=== PATIENT | female | born 1960 | race Caucasian/White ===

== ENCOUNTER → 2023-10-27 07:53 | Outpatient (REF) | payer OTHER, SELFPAY | LOC: HWRAD 07:53 | PROVIDERS: ATTENDING PHYSICIAN Family Medicine | DX: R79.89 Other specified abnormal findings of blood chemistry (principal); N39.0 Urinary tract infection, site not specified | CPT/HCPCS: 36415; 76700; 76770 ==

== ENCOUNTER → 2024-06-07 11:20 | Outpatient (REF) | payer OTHER, SELFPAY ==
[2024-06-07 16:35] LABS: Urine Albumin Trace (Neg - Trace); Urine Bilirubin Negative (Negative); Urine Character Very Cloudy (Clear); Urine Color Yellow; Urine Glucose Negative (Negative); Urine Ketone Negative (Negative); Urine Leukocyte 2+ (Negative); Urine Nitrite Positive (Negative); Urine Occult Blood Negative (Negative); Urine Specific Gravity 1.025 (<1.030); Urine Urobilinogen Negative (Neg - 1+)
[2024-06-07 16:41] LABS: ALT (SGPT) 40 U/L (0-35); AST (SGOT) 36 U/L (14-36); Albumin 4.6 g/dl (3.5-5.0); Alkaline Phosphatase 82 U/L (38-126); Blood Urea Nitrogen 16 mg/dl (7-17); Calcium 9.6 mg/dl (8.4-10.2); Carbon Dioxide 29 mmol/L (22-30); Chloride 100 mmol/L (98-107); Glucose 99 mg/dl (70-99); HDL Cholesterol 50 mg/dl; LDL Cholesterol, Calculated 137 mg/dl; Magnesium 2.3 mg/dl (1.6-2.3); Potassium 4.1 mmol/L (3.5-5.1); Sodium 140 mmol/L (135-145); Total Bilirubin 0.7 mg/dl (0.2-1.3); Total Cholesterol 218 mg/dl (50-199); Total Protein 7.3 g/dl (6.3-8.2); Triglyceride 156 mg/dl (10-149); Very Low Density Lipoprotein 31 mg/dl (0-30); eGFR > 60.00
[2024-06-07 16:43] LABS: % Basophils 0.7 % (0-2); % Eosinophils 3.6 % (0-6); % Immature Granulocytes 0.2 % (0-0.5); % Lymphocytes 31.4 % (20.5-51.1); % Monocytes 8.8 % (1.7-9.3); % Neutrophils 55.3 % (42.2-75.2); Absolute Eosinophils 0.2 10^3/uL (0-0.7); Absolute Lymphocytes 1.9 10^3/uL (1.2-3.4); Absolute Monocytes 0.5 10^3/uL (0.1-0.6); Absolute Neutrophils 3.4 10^3/uL (1.4-6.5); Hematocrit 42.2 % (37.0-47.0); Mean Corp Hgb Conc. 33.2 g/dL (33.0-37.0); Mean Corpuscular Hgb 28.9 pg (27.0-31.0); Mean Platelet Volume 11.7 fL (7.4-10.4); Nucleated Red Blood Cells % 0 %; Platelet Count 223 10^3/uL (130-400); Red Blood Cell Count 4.85 10^6/uL (4.20-5.40); Red Cell Dist. Width 13.5 % (11.5-14.5); White Blood Cell Count 6.1 10^3/uL (4.8-10.8)
[2024-06-07 16:48] LABS: Erythrocyte Sed Rate 15 mm/hour (0-20)
[2024-06-07 16:56] LABS: Vitamin D, 25-OH*** 36.7 ng/mL (30-80)
[2024-06-07 17:05] LABS: Urine Amorphous Seen; Urine Bacteria Many (Negative)
[2024-06-07 17:10] LABS: TSH Reflex To Free T4 2.24 uIU/ml (0.47-4.68)
[2024-06-07 19:07] LABS: Hepatitis C Antibody Negative (Negative)
== END ==
LOC: HWLAB 11:20
PROVIDERS: ATTENDING PHYSICIAN Internal Medicine Cardiovascular Disease; FAMILY PHYSICIAN Family Medicine; REFERRING PHYSICIAN Internal Medicine Gastroenterology
DX: Z11.59 Encounter for screening for other viral diseases (principal); R06.02 Shortness of breath; E78.2 Mixed hyperlipidemia
CPT/HCPCS: 36415; 80053; 80061; 81003; 81015; 82306; 83735; 84443; 85025; 85652; 86803; 87086

== ENCOUNTER → 2024-06-16 08:49 | Outpatient (REF) | payer OTHER, SELFPAY | LOC: HWRAD 08:49 | PROVIDERS: ATTENDING PHYSICIAN Internal Medicine Gastroenterology; FAMILY PHYSICIAN Family Medicine | DX: K57.30 Diverticulosis of large intestine without perforation or abscess without bleeding (principal); K58.9 Irritable bowel syndrome, unspecified | CPT/HCPCS: 74177; Q9967 ==

== ENCOUNTER → 2024-09-20 14:59 | Outpatient (REF) | payer OTHER, SELFPAY | LOC: RAD 14:59 | PROVIDERS: ATTENDING PHYSICIAN Family Medicine | DX: N28.1 Cyst of kidney, acquired (principal) | CPT/HCPCS: 76770 ==

== ENCOUNTER → 2024-10-08 11:57 | Outpatient (REF) | payer OTHER, SELFPAY | LOC: DHSLP 11:57 | PROVIDERS: ATTENDING PHYSICIAN Internal Medicine Critical Care Medicine; FAMILY PHYSICIAN Specialist | DX: G47.33 Obstructive sleep apnea (adult) (pediatric) (principal); R09.02 Hypoxemia | CPT/HCPCS: 95800 ==

== ENCOUNTER → 2025-04-14 12:08 | Outpatient (REF) | payer OTHER, SELFPAY ==
[2025-04-14 16:08] LABS: Hematocrit 43.7 % (37.0-47.0); Hemoglobin 14.3 g/dL (12.0-16.0); Mean Corp Hgb Conc. 32.7 g/dL (33.0-37.0); Mean Corpuscular Volume 87.8 fL (81.0-99.0); Nucleated Red Blood Cells % 0 %; Platelet Count 215 10^3/uL (130-400); Red Cell Dist. Width 13.4 % (11.5-14.5)
[2025-04-14 16:14] LABS: ALT (SGPT) 41 U/L (0-35); AST (SGOT) 30 U/L (14-36); Albumin 4.6 g/dl (3.5-5.0); Alkaline Phosphatase 81 U/L (38-126); Blood Urea Nitrogen 17 mg/dl (7-17); Calcium 9.7 mg/dl (8.4-10.2); Carbon Dioxide 28 mmol/L (22-30); Chloride 104 mmol/L (98-107); Glucose 107 mg/dl (70-99); HDL Cholesterol 52 mg/dl; LDL Cholesterol, Calculated 138 mg/dl; Magnesium 2.2 mg/dl (1.6-2.3); Potassium 4.1 mmol/L (3.5-5.1); Sodium 139 mmol/L (135-145); Total Protein 7.5 g/dl (6.3-8.2); Urine Character Clear (Clear); Very Low Density Lipoprotein 22 mg/dl (0-30); eGFR > 60.00
[2025-04-14 16:15] LABS: C-Reactive Protein 14.00 mg/L (0.0-10.00)
[2025-04-14 16:30] LABS: Vitamin D, 25-OH*** 29.9 ng/mL (30-80)
[2025-04-14 17:20] LABS: Folate 7.2 ng/ml (2.76-20); Vitamin B12 575 pg/ml (239-931)
== END ==
LOC: HWLAB 12:08
PROVIDERS: ATTENDING PHYSICIAN Internal Medicine Cardiovascular Disease; FAMILY PHYSICIAN Family Medicine; REFERRING PHYSICIAN Psychiatry & Neurology Neurology
DX: R06.02 Shortness of breath (principal); E78.2 Mixed hyperlipidemia; I25.10 Atherosclerotic heart disease of native coronary artery without angina pectoris; M25.80 Other specified joint disorders, unspecified joint; E53.9 Vitamin B deficiency, unspecified; E23.0 Hypopituitarism; N14.4 Toxic nephropathy, not elsewhere classified; N39.0 Urinary tract infection, site not specified
CPT/HCPCS: 36415; 80053; 80061; 81003; 82306; 82607; 82746; 83735; 84100; 84443; 85025; 85652; 86140; 87086

== ENCOUNTER → 2025-06-24 07:45 | Outpatient (REF) | payer OTHER, SELFPAY ==
[2025-06-24 10:12] LABS: Urine Character Clear (Clear)
[2025-06-24 10:48] LABS: Urine Red Blood Cell 0-2 /HPF (0-2); Urine Squamous Cell 0-2 /LPF (Few)
== END ==
LOC: HWLAB 07:45
PROVIDERS: ATTENDING PHYSICIAN Family Medicine
DX: R30.0 Dysuria (principal)
CPT/HCPCS: 81003; 81015; 87086